=== PATIENT | female | born 2000 | race African-American/Black ===

== ENCOUNTER 2021-03-26 16:08 | Emergency (ER) | payer OTHER, SELFPAY ==
[2021-03-26] MEDS ORDERED: Ibuprofen 600 MG TAB ONE (17:28)
[2021-03-26] MEDS ORDERED: Cyclobenzaprine 10 MG TAB ONE (17:28)
== END 2021-03-26 18:30 | disposition home or self-care (01) ==
LOC: MADERS 16:08
DX: S16.1XXA Strain of muscle, fascia and tendon at neck level, initial encounter (principal); S20.20XA Contusion of thorax, unspecified, initial encounter; V49.9XXA Car occupant (driver) (passenger) injured in unspecified traffic accident, initial encounter
CPT/HCPCS: 70450; 71046; 72125